=== PATIENT | female | born 1955 | race Caucasian/White ===

== ENCOUNTER → 2016-08-21 | Day surgery (SDC) | payer OTHER ==
[~2016-08-21] MED LIST: ALEN70 PO; ALPR0.5T99 PO; ASPI325T PO; AZAT50 PO; CALA120T PO; CALTTAB2 PO; CILO100T PO; DILA2TAB4 PO; HYDR200T42 PO; LACTATED RINGER'S 1,000 ML BAG IV ONE; LEVO.15 PO; MELA3TAB14 PO; MELO15TA2 PO; METH2.5 PO; NIFE1TAB85 PO; OMEP20CA5 PO; PRED1 PO; PRED5 PO; PROPOFOL 100 MG/10 ML INJ IV ONE; TAB-TAB PO; VITA100017 PO; ZOVI800T13 PO
--- NOTE | 2016-08-21 15:03 | GIPROC ---
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 TOPICAL ANESTHETIC: none CONSENT: The patient understands the risks and benefits of the procedure and understands that these risks include, but are not limited to: sedation, allergic reaction, infection, perforation and/or bleeding. Alternative means of evaluation and treatment include, among others: physical exam, x-rays, and/or surgical intervention. The patient elects to proceed with this endoscopic procedure. medical equipment was checked for proper function. Hand hygiene and appropriate measures for infection prevention was taken. After the risks, benefits and alternatives of the procedure were thoroughly explained, Informed consent was verified, confirmed and timeout was successfully executed by the treatment team. The patient was anesthetized with topical anesthesia and the EG-[id number] ([id number]) and EC-[id number] ([id number]) endoscope was introduced through the mouth and advanced to the second portion of the duodenum. Retroflexed views revealed a hiatal hernia The gastroscope was then slowly withdrawn and removed. Gastritis antrum-biopsy Hernandez's esophagus-biopsy. ADVERSE EVENTS: There were no complications. IMPRESSIONS: 1. Gastritis antrum-biopsy Hernandez's esophagus-biopsy 2. Retroflexed views revealed a hiatal hernia RECOMMENDATIONS: 1. Await biopsy results. Biopsy results will not be ready for 7-10 days. If you don't hear from us in two weeks, call our office for biopsy results. 2. Anti-reflux regimen 3. Continue PPI PATIENT CONDITION: stable DISPOSITION: Home REPEAT EXAM: EGD pending biopsy results Jeniffer Hatch MD eSigned: Jeniffer Hatch MD 08/21/2016 3:02 PM cc: Florin Cardozac Madonna Andino M.D.
== END | disposition home or self-care (01) ==
LOC: ESDC 12:09
PROVIDERS: ATTEND Internal Medicine Gastroenterology
DX: K22.70 Barrett's esophagus without dysplasia (principal); K44.9 Diaphragmatic hernia without obstruction or gangrene; K29.70 Gastritis, unspecified, without bleeding
CPT/HCPCS: 00740; 43239; 88305; 88312; J3010; J7120